=== PATIENT | male | born 1980 | race Two or more races ===

== ENCOUNTER 2023-11-28 11:48 | Emergency (ER) | payer OTHER ==
[~2023-11-28] VITALS: Ht 170.2 cm; Wt 97.7 kg
[2023-11-28 11:54] VITALS: TEMP 98
[2023-11-28] MEDS ORDERED: BACTDSB PO (11:56)
[2023-11-28] MEDS: LIDOCAINE 1% 10 ML VIAL ID ONE (15:21)
[2023-11-28] MEDS: 0.9% SODIUM CHLORIDE 1000 ML IRRIG SOLUTION BOTTLE IRRIG ONE (15:21)
[2023-11-28] MEDS: CefTRIAXone SODIUM 1 GM/VIAL IM ONE (16:28)
[2023-11-28] MEDS ORDERED: CEPH-558 PO (16:28)
[2023-11-28] MEDS: LIDOCAINE/PF 1% 2 ML VIAL IM ONE (16:30)
[2023-11-28] MEDS ORDERED: KETOROLAC TROMETHAMINE 30 MG/ML VIAL IVP ONE (16:30)
[2023-11-28] MEDS: KETOROLAC TROMETHAMINE 30 MG/ML VIAL IM ONE (16:36)
[2023-11-28 16:40] VITALS: BP 131/84; PULSE 84; RESP 18
== END 2023-11-28 16:41 | disposition home or self-care (01) ==
LOC: EMS 11:48
DX: L02.611 Cutaneous abscess of right foot (principal); Z98.890 Other specified postprocedural states
CPT/HCPCS: 99284; 96372; J0696; J1885; J3490